=== PATIENT | female | born 1970 | race Caucasian/White ===

== ENCOUNTER 2017-10-11 20:46 | Emergency (ER) | payer MEDICAID ==
--- NOTE | 2017-10-11 21:04 | EDPHY ---
H & P Stated Complaint: abd pain, N/V/D Time Seen by Provider: 10/11/17 20:49 HPI/ROS: CHIEF COMPLAINT: Diarrhea HISTORY OF PRESENT ILLNESS: 47-year-old female with Crohn's disease and anxiety presents with diarrhea and abdominal cramping. She is currently staying at the [facility] for anxiety and depression. She recently started a new antihistamine and thinks that this medication may have caused abdominal cramping. She has ongoing diarrhea, without significant change recently. She is currently not taking medication for Crohn's disease. Previously on Remicade , which controlled her symptoms well. She has abdominal cramping and significant anxiety. Requesting pain medications. REVIEW OF SYSTEMS: complete 10 point ROS negative except at noted in the HPI - Personal History LMP (Females 10-55): 1-7 Days Ago Current Tetanus/Diphtheria Vaccine: Yes - Medical/Surgical History Hx Asthma: No Hx Chronic Respiratory Disease: No Hx Diabetes: No Hx Cardiac Disease: No Hx Renal Disease: No Hx Cirrhosis: No Hx Alcoholism: No Hx HIV/AIDS: No Hx Splenectomy or Spleen Trauma: No Other PMH: anxiety/depression/umbilical hernia, chrons,. ETOH abuse, opioid abuse. - Social History Smoking Status: Current every day smoker - Physical Exam Exam: General Appearance: Alert, yelling loudly, uncooperative initially; re- examined later during her visit Eyes: Pupils equal and round, no conjunctival pallor or injection ENT, Mouth: Mucous membranes moist Neck: Normal inspection Respiratory: Lungs are clear to auscultation Cardiovascular: Regular rate and rhythm Gastrointestinal: Abdomen is soft, mild diffuse tenderness Neurological: A&O, nonfocal, normal gait Skin: Warm and dry, no rash Extremities: Normal inspection Psychiatric: Anxious Constitutional: Initial Vital Signs Temperature (C) 35.8 C L 10/11/17 20:48 Heart Rate 61 10/11/17 20:48 Respiratory Rate 20 10/11/17 20:48 Blood Pressure 128/86 H 10/11/17 20:48 O2 Sat (%) 100 10/11/17 20:48 O2 Delivery Mode Room Air Allergies/Adverse Reactions: No Known Allergies Allergy (Unverified 10/16/13 07:35) Home Medications: Medication Instructions Recorded Effexor 10/16/13 Venlafaxine Xr [Effexor Xr 75MG 75 mg PO DAILY #14 cap 10/16/13 (RX)] Medical Decision Making ED Course/Re-evaluation: This patient presents with anxiety, abdominal pain and diarrhea. She was initially yelling at me and at staff and then left the emergency department. The ED staff found her and brought her back to the emergency department. She was encouraged to calm down so that we could appropriately evaluate her. Ativan 1 mg IV and Toradol 15 mg IV given for abdominal cramping and anxiety. After this, the patient felt much better was much more calm and I was able to have a conversation with her. She has a history of Crohn's disease and is off Remicade. No fever or vomiting. She has ongoing diarrhea, similar to today. She also has ongoing intermittent abdominal cramping. Increased anxiety recently, stating at [facility]. Abdominal exam is benign. A prepack of Ativan given. I do not feel that further emergency department evaluation is indicated. Differential Diagnosis: Differential diagnosis includes though it is not limited to appendicitis, cholecystitis, diverticulitis, pyelonephritis, bowel perforation, small bowel obstruction. - Data Points Medications Given: Discontinued Medications Ketorolac Tromethamine (Toradol) 15 mg IVP EDNOW ONE Stop: 10/11/17 21:26 Last Admin: 10/11/17 21:27 Dose: 15 mg Lorazepam (Ativan Injection) 1 mg IVP EDNOW ONE Stop: 10/11/17 21:26 Last Admin: 10/11/17 21:27 Dose: 1 mg Lorazepam (Ativan 1 Mg Prepack#4) 1 btl TAKEHOME EDNOW ONE Stop: 10/11/17 21:59 Last Admin: 10/11/17 22:17 Dose: 1 btl Departure - Departure Disposition: Home, Routine, Self-Care Clinical Impression: Abdominal pain Qualifiers: Abdominal location: generalized Qualified Code(s): R10.84 - Generalized abdominal pain Crohns disease Qualifiers: Gastrointestinal tract location: unspecified location Digestive disease complication type: without complication Qualified Code(s): K50.90 - Crohn's disease, unspecified, without complications Condition: Good Instructions: Lorazepam (By mouth), Acute Abdominal Pain (ED) Additional Instructions: Call your hospital chief executive officer to make an appointment. Ativan 1 tablet every 12 hr as needed for anxiety or abdominal cramping Referrals: Abdias Doe MD [Medical Doctor] - As per Instructions
[2017-10-11] MEDS ORDERED: KETOROLAC 15 MG/1 ML SDV IVP ONE (21:25)
[2017-10-11] MEDS ORDERED: LORazepam 2 MG/ML INJ IVP ONE (21:25)
[2017-10-11 21:58] VITALS: BP 116/72
[2017-10-11] MEDS ORDERED: LORAZEPAM 1 MG PREPACK#4 BTL TAKEHOME ONE (21:58)
== END 2017-10-11 22:24 | disposition home or self-care (01) ==
LOC: EDUNIT#
DX: K50.90 Crohn's disease, unspecified, without complications (principal); F17.200 Nicotine dependence, unspecified, uncomplicated
CPT/HCPCS: 96374; J1885; J2060

== ENCOUNTER 2018-09-14 20:58 | Inpatient (IN) | payer MEDICAID | END 2018-09-16 10:25 | disposition home or self-care (01) | LOC: F1N 09-15 00:05 ==